=== PATIENT | female | born 1995 | race Caucasian/White ===

== ENCOUNTER 2017-11-03 13:06 | Emergency (ER) | payer OTHER ==
[~2017-11-03] VITALS: Ht 170.2 cm; Wt 70.3 kg
[2017-11-03 13:32] VITALS: BP 130/66
== END 2017-11-03 13:59 | disposition home or self-care (01) ==
LOC: ER 13:21
DX: J06.9 Acute upper respiratory infection, unspecified (principal)
CPT/HCPCS: 99282; A4606; Z7610